=== PATIENT | male | born 1940 | race African-American/Black ===

== ENCOUNTER 2021-12-05 18:39 | Observation (INO) ==
[2021-12-05 21:27] LABS: Alanine Aminotransferase 100 U/L (7-52); Albumin Globulin Ratio 0.8 (0.9-2); Albumin Level 3.5 gm/dl (3.4-5.0); Alkaline Phosphatase 862 U/L (34-104); Anion Gap 10 (3-11); BUN Creatinine Ratio 21.8 (10-20); Bilirubin,Total 7.5 mg/dl (0.2-1.0); Blood Urea Nitrogen 19 mg/dl (6-23); Calcium 9.1 mg/dl (8.5-10.1); Carbon Dioxide 20 mmol/L (21-32); Chloride 98 mmol/L (98-107); Est GFR (African American) 93.2 ml/min; Est GFR (Non-African American) 80.4 ml/min; Globulin 4.3 gm/dl (2.5-4.0); Glucose 119 mg/dl (70-99(Fasting)); Lipase 56 U/L (11-82); Sodium 128 mmol/L (136-145); Total Protein 7.8 gm/dl (6.0-8.3)
[2021-12-05 21:31] LABS: Basophils # (auto) 0.03 K/uL (0-0.2); Basophils % (auto) 0.4 %; Eosinophils # (auto) 0.01 K/uL (0-0.50); Eosinophils % (auto) 0.1 %; Hemoglobin 14.8 g/dl (14.0-18.0); Immature Granulocytes # (auto) 0.03 K/uL (0.00-0.02); Immature Granulocytes % (auto) 0.4 %; Lymphocytes # (auto) 0.87 K/uL (1.2-3.4); Lymphocytes % (auto) 12.6 %; Mean Corpuscular Hemoglobin 28.2 pg (25.0-34.0); Mean Corpuscular Hgb Conc 34.4 g/dL (32.0-36.0); Mean Corpuscular Volume 81.9 fL (80.0-100.0); Monocytes # (auto) 0.58 K/uL (0.24-0.82); Monocytes % (auto) 8.4 %; Neutrophils # (auto) 5.39 K/uL (1.4-6.5); Neutrophils % (auto) 78.1 %; Platelet Count 116 K/uL (130-400); RDW Coefficient of Variation 24.1 % (11.5-14.5); RDW Standard Deviation 66.8 fL (36.4-46.3); Red Blood Count 5.25 M/uL (4.63-6.08); Target Cells 2+; White Blood Count 6.91 K/ul (4.8-10.8)
[2021-12-05] MEDS ORDERED: SODIUM CHLORIDE 0.9% 1000ML 1,000 ML IV SCH (22:45)
[2021-12-05] MEDS ORDERED: OPTIRAY 300 100mL IV ONE (23:06)
[2021-12-05 23:25] LABS: Potassium 4.6 mmol/L (3.5-5.1)
[2021-12-06 01:07] LABS: Appearance Urine Clear (Clear); Bacteria Urine Automated Negative (Negative); Blood Urine Negative (Negative); Color Urine Dark Yellow; Glucose Urine UA Negative (Negative); Ketones Urine Negative (Negative); Leukocyte Esterase Urine Negative (Negative); Nitrite Urine Negative (Negative); Protein Urine 1+ (Negative); RBC Urine Automated 0-4 /hpf (0-4); Specific Gravity Urine 1.041 (1.000-1.030); Urobilinogen Urine Negative (Negative)
[2021-12-06 01:09] LABS: Bilirubin Urine 1+ (Negative)
[2021-12-06] MEDS ORDERED: METOPROLOL TARTRATE 1 MG/ML VIAL IV STA (01:10)
[2021-12-06 01:33] LABS: Magnesium 2.1 mg/dl (1.7-2.4)
[2021-12-06] MEDS ORDERED: FUROSEMIDE 40 MG/4 ML VIAL IV ONE (01:58)
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
[2021-12-06] MEDS ORDERED: Patient's ALLERGY Info needs ENTERED SCH (02:15)
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
[2021-12-06 03:04] LABS: INR 1.3 (0.9-1.1); Partial Thromboplastin Time 28.2 Seconds (21.0-31.0); Prothrombin Time 13.4 Seconds (9.0-12.0)
[2021-12-06] MEDS ORDERED: METOPROLOL TARTRATE 1 MG/ML VIAL IV SCH (05:14)
[2021-12-06] MEDS ORDERED: METOPROLOL TARTRATE 25 MG TAB PO STA (05:14)
[2021-12-06] MEDS ORDERED: METOPROLOL TARTRATE 1 MG/ML VIAL IV PRN (06:16)
[2021-12-06] MEDS: METOPROLOL TARTRATE 25 MG TAB PO SCH ×2 (08:38→20:17)
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
--- NOTE | 2021-12-06 10:34 | Electrocardiogram Report ---
Test Reason : Blood Pressure : / mmHG Vent. Rate : 080 BPM Atrial Rate : 234 BPM P-R Int : 000 ms QRS Dur : 086 ms QT Int : 322 ms P-R-T Axes : 000 -44 -65 degrees QTc Int : 371 ms Atrial flutter with variable A-V block Left axis deviation Nonspecific ST and T wave abnormality Abnormal ECG No previous ECGs available Confirmed by Shailesh Malone ([id number]) on 12/06/2021 10:33:59 AM Referred By: [facility] Confirmed By:Shailesh Malone
[2021-12-07] MEDS: METOPROLOL TARTRATE 25 MG TAB PO SCH (08:43)
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
[2021-12-07] MEDS ORDERED: FUROSEMIDE 40 MG/4 ML VIAL IV ONE (12:01)
--- NOTE | 2021-12-08 07:16 | Electrocardiogram Report ---
Test Reason : Blood Pressure : / mmHG Vent. Rate : 069 BPM Atrial Rate : 288 BPM P-R Int : 000 ms QRS Dur : 082 ms QT Int : 416 ms P-R-T Axes : 000 -14 264 degrees QTc Int : 445 ms Atrial fibrillation Low voltage QRS T wave abnormality, consider anterior ischemia Abnormal ECG When compared with ECG of 06-DEC-2021 01:08, Atrial fibrillation has replaced Atrial flutter T wave inversion now evident in Anterior leads QT has lengthened Confirmed by Edgar Conde ([id number]) on 12/08/2021 7:15:52 AM Referred By: [facility] Confirmed By:Edgar Conde
== END 2021-12-07 15:00 | DRG 436 ==
LOC: ED 18:39 → INTOOBSV 12-06 01:59 → 4W 12-06 01:59 → SUATTDRO 12-06 01:59 → 4W 12-06 04:51